=== PATIENT | male | born 1950 | race Caucasian/White ===

== ENCOUNTER 2024-10-13 22:38 | Inpatient (IN) | payer MEDICARE, OTHER ==
[~2024-10-13] VITALS: Ht 185.4 cm; Wt 113.4 kg
[~2024-10-13 22:38] MED LIST: ACETAMINOP325 MG/10 PO; ASCORBIC ACID500 MG PO; ATORVASTATIN CA20 MG PO; CALCIUM CARBON500 MG PO; CIPRO500 MG PO; COLACE100 M1 PO; ELIQUIS5 MG PO; FINASTERIDE5 MG PO; FLOMAX0.4 MG PO; LASIX40 MG PO; MAG-OXIDE400 MG PO; MIRALAX17 GM PO; NEURONTIN400 MG PO; ONE-A-DAY ESSE1 EACH PO; SENNA S TABLET1 EACH PO; TIZANIDINE HCL4 M1 PO; TOPROL XL25 MG PO; ULTRAM 50MG50 MG PO; ZINC SULFATE50 MG PO
[2024-10-13 22:40] VITALS: TEMP 98.2
[2024-10-13] MEDS ORDERED: ADENOSINE 6MG/2ML 2 ML ONE (22:52)
[2024-10-13] MEDS ORDERED: ADENOSINE 6MG/2ML 4 ML ONE (22:53)
[2024-10-13] MEDS ORDERED: SODIUM CHLORIDE 0.9% 1000ML 1,000 ML ONE (22:55)
[2024-10-13] MEDS: ADENOSINE 6 MG/2 ML VIAL IV ONE ×2 (22:58→23:00)
[2024-10-13] MEDS: METOPROLOL TARTRATE INJ 1 MG/ML VIAL IV STA (23:12)
[2024-10-13] MEDS: DIGOXIN INJ 0.25 MG/ML 2 ML AMP IV STA (23:12)
[2024-10-13] MEDS: DILTIAZEM HCL 5 MG/ML 5 ML VIAL IV STA (23:12)
[2024-10-13 23:31] LABS: BASOPHILS # (AUTO) 0.1 (0.0-0.1); BASOPHILS % 0.6 % (0.0-1.0); HEMATOCRIT 47.9 % (38.2-49.6); HEMOGLOBIN 15.7 g/dL (14.0-18.0); LYMPHOCYTES # (AUTO) 2.5 (1.0-3.2); LYMPHOCYTES % 26.7 % (18.0-39.1); MEAN CORPUSCULAR HEMOGLOBIN 31.4 pg (28-32); MEAN CORPUSCULAR HGB CONC 32.8 g/dL (31-35); MEAN CORPUSCULAR VOLUME 95.8 fL (81-99); MONOCYTES % 10.8 % (4.4-11.3); NEUTROPHILS # (AUTO) 5.9 (2.1-6.9); NEUTROPHILS % 61.6 % (38.7-80.0); PLATELET COUNT 269 x10e3/uL (140-360); RED CELL DISTRIBUTION WIDTH 14.5 % (11.7-14.4); WHITE BLOOD COUNT 9.53 x10e3/uL (4.8-10.8)
[2024-10-13 23:56] LABS: ALBUMIN 3.3 g/dL (3.5-5.0); ALBUMIN/GLOBULIN RATIO 0.9 (0.8-2.0); ANION GAP 16.6 mmol/L (8-16); BILIRUBIN,TOTAL 0.8 mg/dL (0.2-1.2); CALCIUM 8.7 mg/dL (8.4-10.2); CREATININE, SERUM 1.07 mg/dL (0.72-1.25); POTASSIUM 3.6 mmol/L (3.5-5.1); TOTAL PROTEIN 6.8 g/dL (6.5-8.1)
[2024-10-14] VITALS (10 sets, daily range): BP systolic 111–132; BP diastolic 69–94; PULSE 55–74; RESP 16–59; TEMP 97.3–97.8; O2SAT 95–100
[2024-10-14 00:20] LABS: TROPONIN I 0.146 ng/mL (0-0.300)
[2024-10-14] MEDS ORDERED: Morphine 4mg INJECTION 4 MG/ML INJ IV PRN (00:30)
[2024-10-14] MEDS ORDERED: ONDANSETRON HCL INJ 2MG/ML 2ML 2 MG/ML VIAL IV PRN ×2 (00:30→17:00)
[2024-10-14] MEDS: SODIUM CHLORIDE 0.9% 1000ML 1,000 ML IV SCH (01:30)
[2024-10-14] MEDS ORDERED: GABAPENTIN100 MG PO (06:31)
[2024-10-14] MEDS ORDERED: CETIRIZINE HCL10 MG PO (06:31)
[2024-10-14 10:08] LABS: TROPONIN I 0.254 ng/mL (0-0.300)
[2024-10-14] MEDS: AMIODARONE HCL 200 MG TAB PO SCH (11:13)
[2024-10-14] MEDS: METOPROLOL SUCCINATE 25 MG TAB XL PO SCH (11:13)
[2024-10-14] MEDS: APIXABAN 5 MG TABLET PO SCH ×2 (16:23→17:00)
[2024-10-14] MEDS ORDERED: AMIODARONE HCL200 MG PO (16:54)
[2024-10-14] MEDS ORDERED: HYDRALAZINE HCL 20 MG/ML VIAL IV PRN (17:00)
[2024-10-14] MEDS ORDERED: DIPHENHYDRAMINE HCL 25 MG CAP PO PRN (17:00)
[2024-10-14] MEDS ORDERED: POTASSIUM CHLORIDE 20 MEQ TAB CR PO PRN (17:00)
[2024-10-14] MEDS ORDERED: DEXTROSE 50% SYRINGE 50 ML IV PRN (17:00)
[2024-10-14] MEDS ORDERED: SIMETHICONE 80 MG CHEW PO PRN (17:00)
[2024-10-14] MEDS ORDERED: ALBUTEROL/IPRATROPIUM 3 ML NEB NEB PRN (17:00)
[2024-10-14] MEDS ORDERED: MELATONIN 5 MG TABLET PO PRN (17:00)
[2024-10-14] MEDS ORDERED: LIDOCAINE 4% PATCH TP PRN (17:00)
[2024-10-14] MEDS ORDERED: ACETAMINOPHEN 325 MG TAB PO PRN (17:00)
[2024-10-14] MEDS ORDERED: BENZONATATE 100 MG CAP PO PRN (17:00)
[2024-10-14] MEDS ORDERED: DOCUSATE SODIUM 100 MG CAP PO PRN (17:00)
[2024-10-14] MEDS ORDERED: FINASTERIDE 5 MG TAB PO SCH (21:00)
[2024-10-15] MEDS ORDERED: PANTOPRAZOLE SOD 40 MG TABEC PO SCH (07:30)
[2024-10-15] MEDS ORDERED: FINASTERIDE 5 MG TAB PO SCH (09:00)
[2024-10-15] MEDS ORDERED: TAMSULOSIN HCL 0.4 MG CAP PO SCH (09:00)
== END 2024-10-14 19:51 | disposition home or self-care (01) | DRG 309 ==
LOC: ER 22:43 → ERHOLD 10-14 00:32 → MED/SURG3 10-14 01:44
PROVIDERS: ADMIT Internal Medicine; ATTEND Internal Medicine
DX: I47.10 Supraventricular tachycardia, unspecified (principal); I50.32 Chronic diastolic (congestive) heart failure; I11.0 Hypertensive heart disease with heart failure; I48.91 Unspecified atrial fibrillation; Z79.01 Long term (current) use of anticoagulants; I45.10 Unspecified right bundle-branch block; E66.01 Morbid (severe) obesity due to excess calories; Z68.33 Body mass index [BMI] 33.0-33.9, adult; G47.33 Obstructive sleep apnea (adult) (pediatric); I89.0 Lymphedema, not elsewhere classified; E78.00 Pure hypercholesterolemia, unspecified; G62.9 Polyneuropathy, unspecified; R26.9 Unspecified abnormalities of gait and mobility; M47.9 Spondylosis, unspecified; M17.10 Unilateral primary osteoarthritis, unspecified knee; G89.4 Chronic pain syndrome; N42.9 Disorder of prostate, unspecified; Z79.899 Other long term (current) drug therapy
CPT/HCPCS: 36415; 71045; 80053; 82550; 83690; 83880; 84443; 84484; 85025; 93005; 93306; 94799; 99285; J0153; J1160; J7030